=== PATIENT | female | born 1985 | race Caucasian/White ===

== ENCOUNTER 2016-06-28 10:44 | Emergency (ER) | payer OTHER ==
[~2016-06-28] VITALS: Ht 162.6 cm; Wt 136.4 kg
[~2016-06-28 10:44] MED LIST: ADDERALL XR 1515 MG PO; ADVAIR 100-501 EACH IH; ADVAIR 250/501 DISK IH; AMBIEN10 MG PO; AMBIEN5 MG PO; ATIVAN0.5 MG PO; ATIVAN1 MG PO; CETIRIZINE HCL10 M2 PO; CLARITIN,ALAVAR10 MG PO; CLEAR-ATADINE10 MG PO; CYMBALTA20 MG PO; CYMBALTA60 MG PO; DEPO-PROVER150 MG/ML IM; DESYREL100 MG PO; DOXEPIN HCL150 MG PO; EFFEXOR100 MG PO; EPIPEN ADU0.3 MG/0.3 IM; FLEXERIL10 MG PO; FLOVENT DISKUS1 DISK; FLOVENT DISKUS1 DISK IH; FOLIC ACID1 MG PO; FUROSEMIDE20 MG PO; GABAPENTIN600 MG PO; IMITREX100 MG; IMITREX100 MG PO; JOLESSA1 EACH PO; KLONOPIN0.5 M1 PO; LAMICTAL25 MG PO; LITHIUM CARBON300 M1 PO; LORADAMED10 MG PO; LORAZEPAM0.5 MG PO; LORTAB 5-325 M1 EACH PO; LUNESTA3 MG PO; METHOTREXATE2.5 MG PO; MOTRIN800 MG PO; MUPIROCIN22 GM TP; NAPROSYN500 MG PO; OMEPRAZOLE20 MG PO; ONDANSETRON ODT8 MG PO; OXYCODONE HCL10 M1; OXYCODONE HCL20 M1; PAROXETINE HCL40 MG PO; PREDNISONE10 MG PO; PROAIR HFA8.5 GM IH; PROVENTIL,2.5 MG/0.5 IH; SAPHRIS5 MG; TOPAMAX100 MG PO; TRAZODONE HCL150 MG PO; TREXALL15 MG PO; ULTRAM50 MG PO; VALIUM5 MG PO
[2016-06-28 12:25] LABS: HEMATOCRIT 43.6 % (36.0-46.0); MCH 27.3 PG (29.0-34.0); MCHC 33.3 G/DL (30.0-36.0); MCV 82.1 FL (83-99); MEAN PLAT.VOLUME 11.5 uM^3 (9.5-12.4); PLATELET COUNT 252 K/uL (156-360); RBC DIS.WIDTH-CV 14.6 % (11.8-14.6); RBC DIS.WIDTH-SD 43.3 % (39-53); RED BLOOD COUNT 5.31 M/uL (3.80-5.20); WHITE BLOOD COUNT 8.8 K/uL (4.1-10.2)
[2016-06-28 12:36] LABS: CHLORIDE 108 mEq/L (99-109); POTASSIUM 3.6 mEq/L (3.7-5.4); SODIUM 138 mEq/L (136-147)
[2016-06-28 12:38] LABS: GLUCOSE 97 mg/dL (70-99)
[2016-06-28 12:39] LABS: ANION GAP 11 MEQ/L (2-14)
[2016-06-28 12:40] LABS: TOTAL BILIRUBIN 0.3 mg/dL (0.0-1.0)
[2016-06-28 12:42] LABS: ALKALINE PHOSPHATASE 96 IU/L (3-129); GFR ESTIMATE (CALCULATED) > 59 mL/min/
[2016-06-28 12:43] LABS: UREA NITROGEN (BUN) 14 mg/dL (9-23)
[2016-06-28 12:45] LABS: LIPASE 19 U/L (1.0-51.0)
[2016-06-28 12:56] LABS: QUANTITATIVE HCG < 4.0 MIU/ML
[2016-06-28 12:57] LABS: ADD MIUA? YES; BILIRUBIN NEGATIVE; BLOOD LARGE; COLOR YELLOW ((YELLOW)); GLUCOSE (STRIP) NEGATIVE; KETONES NEGATIVE; LEUKOCYTES SMALL; NITRITE NEGATIVE; PH, URINE 6.5 (5-8); PROTEIN (STRIP) NEGATIVE; SPECIFIC GRAVITY 1.022 (1.000-1.030); UROBILINOGEN 0.2 MG/DL (0.2-1.0)
[2016-06-28 13:28] LABS: WHITE BLOOD CELLS RARE /HPF (0-5)
[2016-06-28 13:29] LABS: BACTERIA RARE; CASTS NONE SEEN /LPF; CRYSTALS NONE SEEN; EPITHELIAL CELLS 1+; MUCUS NONE SEEN; UCUL ADDED? NO
[2016-06-28] MEDS ORDERED: VENTOLIN HFA18 GM IH (13:59)
[2016-06-28] MEDS ORDERED: TAMIFLU75 MG PO (14:00)
[2016-06-28] MEDS ORDERED: LEFLUNOMIDE20 MG PO (14:00)
[2016-06-28] MEDS ORDERED: LISINOPRIL5 MG PO (14:00)
[2016-06-28] MEDS ORDERED: OMEPRAZOLE40 M1 PO (14:00)
[2016-06-28] MEDS ORDERED: HUMIRA40 MG/0.1 SC (14:01)
[2016-06-28] MEDS ORDERED: CARBAMAZEPINE200 MG PO ×2 (14:01→14:10)
[2016-06-28] MEDS ORDERED: CLONAZEPAM0.5 MG PO (14:01)
[2016-06-28] MEDS ORDERED: GABAPENTIN800 MG PO (14:10)
[2016-06-28] MEDS ORDERED: ZOFRAN ODT4 MG PO (14:47)
[2016-06-28] MEDS ORDERED: ULTRACET1 TABLET PO (14:51)
[2016-06-28] MEDS ORDERED: MOTRIN600 MG PO (14:51)
[2016-06-28] MEDS ORDERED: BENTYL20 MG PO (15:52)
[2016-06-28 15:59] VITALS: BP 129/70
== END 2016-06-28 16:09 | disposition home or self-care (01) ==
LOC: EME 10:44
DX: R10.9 Unspecified abdominal pain (principal); R11.2 Nausea with vomiting, unspecified; R19.7 Diarrhea, unspecified; R31.9 Hematuria, unspecified; J45.909 Unspecified asthma, uncomplicated; G43.909 Migraine, unspecified, not intractable, without status migrainosus; Z87.442 Personal history of urinary calculi
CPT/HCPCS: 74176; 80053; 81003; 83690; 84702; 85027; 99281; 99284; J0500; J3010

== ENCOUNTER 2016-07-12 20:44 | Emergency (ER) | payer OTHER ==
[~2016-07-12] VITALS: Ht 162.6 cm; Wt 135.9 kg
[~2016-07-12 20:44] MED LIST changes: +BENTYL20 MG PO; +CARBAMAZEPINE200 MG PO; +CLONAZEPAM0.5 MG PO; +GABAPENTIN800 MG PO; +HUMIRA40 MG/0.1 SC; +LEFLUNOMIDE20 MG PO; +LISINOPRIL5 MG PO; +MOTRIN600 MG PO; +OMEPRAZOLE40 M1 PO; +TAMIFLU75 MG PO; +ULTRACET1 TABLET PO; +VENTOLIN HFA18 GM IH; +ZOFRAN ODT4 MG PO
[2016-07-12 22:10] LABS: INFLUENZA A VIRAL ANTIGEN NEGATIVE; INFLUENZA B VIRAL ANTIGEN NEGATIVE
[2016-07-12] MEDS ORDERED: MEDROL DOSEPAK4 MG PO (22:28)
[2016-07-12 23:02] VITALS: BP 152/98
== END 2016-07-12 23:09 | disposition home or self-care (01) ==
LOC: RME 20:44 → EME 20:44 → RME 23:09
PROVIDERS: Physician Assistant
DX: J45.909 Unspecified asthma, uncomplicated (principal); Z91.040 Latex allergy status; Z88.1 Allergy status to other antibiotic agents
CPT/HCPCS: 87502; 94640; 94640 76; 99281; 99284; J7512